=== PATIENT | female | born 1945 | race Caucasian/White ===

== ENCOUNTER 2017-06-17 10:37 | Observation (INO) | payer MEDICARE ==
[~2017-06-17] VITALS: Ht 157.5 cm; Wt 74.0 kg
[~2017-06-17 10:37] MED LIST: ADVA250A INH; ALPR.25 PO; ASPI81 PO; FLON0.053; METO25 PO; NITR0.4S SL; PLAV75TA PO; PROT40TA PO; ROSU40 PO
[2017-06-17 10:39] VITALS: BP 162/66; PULSE 88; RESP 15; TEMP 98.2; O2SAT 98
--- NOTE | 2017-06-17 10:53 | PD ---
HPI Chief Complaint: Chest Pain Time Seen by Provider: 10:52 Travel History International Travel<30 days: No Contact w/Intl Traveler<30days: No Traveled to known affect area: No History of Present Illness HPI 72 YO F with PMH of HTN, COPD, OK, PAD, CAD s/p coronary and femoral stenting, former smoker presents to the ED for evaluation of central chest tightness since 3 AM. Patient states that the pain woke her from sleep. She endorses diaphoresis and SOB. She denies palpitations, nausea, vomiting. She describes the pain as "like heartburn" and states that it is similar to previous MIs. She treated with nitroglycerin which did improve her symptoms, denies chest pain on presentation. She took low dose aspirin today. She spoke with her forklift technician who advised her to come to the ED. she also states that she took her first dose of metformin yesterday and had several episodes of diarrhea. PCP Dr. Lucas Jordan. [facility] Past Medical History Arthritis: Yes Blood Disorders: No Anxiety: No Depression: No Heart Rhythm Problems: No Cancer: No Cardiac Catheterization: Yes Cardiovascular Problems: Yes (4 CARDIAC STENTS 2009 2010, PVD) High Cholesterol: Yes Chest Pain: Yes Congestive Heart Failure: No COPD: Yes Coronary Artery Disease: Yes Diabetes: No Diminished Hearing: No Endocrine: No Gastrointestinal Disorders: No Genitourinary: No Hepatitis: No Hiatal Hernia: Yes Hypertension: Yes Immune Disorder: No Implanted Vascular Access Dvce: Yes Musculoskeletal: Yes (ARTHRITIS NECK) Neurologic: No Psychiatric: Yes (EXTREME CLAUSTRAPHOBIA) Reproductive: No Respiratory: Yes (COPD) Myocardial Infarction: Yes Pneumonia: Yes (WALKING ) Thyroid Disease: No Menopausal: Yes : 3 Para: 3 Miscarriage: 0 : 0 Past Surgical History Abdominal Surgery: No AICD: No Body Medical Devices: CARDIAC STENTS X 4; BILAT LEG STENTS X 4 RIGHT HIP Cardiac Surgery: Yes (CARDIAC STENTS X 4; LEGS 2 STENTS LEFT & RIGHT ) Coronary Stent: Yes (X 4 ) Ear Surgery: No Endocrine Surgery: No Eye Surgery: Yes (RIGHT CATARACT EXT.) Genitourinary Surgery: No Gynecologic Surgery: No Joint Replacement: Yes (RIGHT HIP) Oral Surgery: No Pacemaker: No Thoracic Surgery: No Other Surgery: No Social History Alcohol Use: Yes (OCCAS-MIX DRINKS) Tobacco Use: No (QUIT 4 YRS AGO:AGO, SMOKED 2 PPD) Substance Use: No Allergies-Medications (Allergen,Severity, Reaction): Coded Allergies: Niacin (Verified Allergy, Severe, 06/17/17) RASH Reported Meds & Prescriptions Reported Meds & Active Scripts Active Reported Ventolin Hfa 18 GM Inh (Albuterol Sulfate) 90 Mcg/Act Aer 1-2 Puff INH Q4-6H PRN Pantoprazole (Pantoprazole Sodium) 40 Mg Tab 40 Mg PO EVERY OTHER DAY Nitrostat SL (Nitroglycerin) 0.4 Mg Subl 0.4 Mg SL DIRECTED PRN 1 tablet under the tongue as needed for chest pain. Repeat every 5 minutes for a total of 3 DOSES or call 911 if NO relief. Metoprolol Tartrate 25 Mg Tab 25 Mg PO BID Clopidogrel (Clopidogrel Bisulfate) 75 Mg Tab 75 Mg PO DAILY Crestor (Rosuvastatin Calcium) 40 Mg Tab 40 Mg PO DAILY Aspirin 81 Mg Chew 81 Mg CHEW DAILY Amlodipine (Amlodipine Besylate) 5 Mg Tab 5 Mg PO DAILY Alprazolam 0.25 Mg Tab 0.25 Mg PO BID PRN Metformin ER (Metformin HCl) 500 Mg Mitzy 500 Mg PO DAILY With evening meal Review of Systems Except as stated in HPI: all other systems reviewed are Neg Physical Exam Narrative GENERAL: Well-nourished, well-developed pleasant white female in no acute distress. SKIN: Focused skin assessment warm/dry. HEAD: Normocephalic. EYES: No scleral icterus. No injection or drainage. NECK: Supple, trachea midline. No JVD or lymphadenopathy. CARDIOVASCULAR: Regular rate and rhythm without murmurs, gallops, or rubs. 2+ DP and radial pulses. RESPIRATORY: Breath sounds clear and equal bilaterally. No accessory muscle use. GASTROINTESTINAL: Abdomen soft, non-tender, nondistended. Active bowel sounds. MUSCULOSKELETAL: No cyanosis, or edema. BACK: Nontender without obvious deformity. No CVA tenderness. Data Data Last Documented VS Vital Signs Date Time Temp Pulse Resp B/P Pulse Ox O2 Delivery O2 Flow Rate FiO2 06/17/17 10:54 18 97 Room Air 06/17/17 10:39 98.2 88 162/66 Orders Electrocardiogram (06/17/17 ) Electrocardiogram (06/17/17 10:51) Basic Metabolic Panel (Bmp) (06/17/17 10:51) Ckmb (Isoenzyme) Profile (06/17/17 10:51) Complete Blood Count With Diff (06/17/17 10:51) Magnesium (Mg) (06/17/17 10:51) Prothrombin Time / Inr (Pt) (06/17/17 10:51) Act Partial Throm Time (Ptt) (06/17/17 10:51) Troponin I (06/17/17 10:51) Chest, Single Ap (06/17/17 10:51) Ecg Monitoring (06/17/17 10:51) Bilateral Bp Monitoring (06/17/17 10:51) Iv Access Insert/Monitor (06/17/17 10:51) Oximetry (06/17/17 10:51) Sodium Chloride 0.9% Flush (Ns Flush) (06/17/17 11:00) Labs Laboratory Tests Test 06/17/17 11:04 White Blood Count 8.3 TH/MM3 Red Blood Count 4.53 MIL/MM3 Hemoglobin 13.7 GM/DL Hematocrit 40.7 % Mean Corpuscular Volume 89.7 FL Mean Corpuscular Hemoglobin 30.1 PG Mean Corpuscular Hemoglobin 33.6 % Concent Red Cell Distribution Width 13.6 % Platelet Count 192 TH/MM3 Mean Platelet Volume 9.4 FL Neutrophils (%) (Auto) 60.5 % Lymphocytes (%) (Auto) 28.0 % Monocytes (%) (Auto) 8.6 % Eosinophils (%) (Auto) 1.8 % Basophils (%) (Auto) 1.1 % Neutrophils # (Auto) 5.0 TH/MM3 Lymphocytes # (Auto) 2.3 TH/MM3 Monocytes # (Auto) 0.7 TH/MM3 Eosinophils # (Auto) 0.1 TH/MM3 Basophils # (Auto) 0.1 TH/MM3 CBC Comment DIFF FINAL Differential Comment Prothrombin Time 10.2 SEC Prothromb Time International 0.9 RATIO Ratio Activated Partial 26.4 SEC Thromboplast Time Sodium Level 137 MEQ/L Potassium Level 3.5 MEQ/L Chloride Level 99 MEQ/L Carbon Dioxide Level 28.2 MEQ/L Anion Gap 10 MEQ/L Blood Urea Nitrogen 13 MG/DL Creatinine 0.75 MG/DL Estimat Glomerular Filtration 76 ML/MIN Rate Random Glucose 260 MG/DL Calcium Level 9.2 MG/DL Magnesium Level 1.7 MG/DL Total Creatine Kinase 37 U/L Troponin I LESS THAN 0.02 NG/ML MDM Medical Decision Making Medical Screen Exam Complete: Yes Emergency Medical Condition: Yes Differential Diagnosis chest pain versus angina versus OK versus ACS versus electrolyte abnormality versus other Narrative Course 72 YO F with PMH of HTN, COPD, OK, PAD, CAD s/p coronary and femoral stenting, former smoker presents to the ED for evaluation of central chest tightness since 3 AM, woke her from sleep. She endorses diaphoresis and SOB. She describes the pain as "like heartburn" and states that it is similar to previous MIs. She treated with nitroglycerin which did improve her symptoms, denies chest pain on presentation. She took low dose aspirin today. Vitals reviewed. Physical exam is unremarkable. Followed by Dr. Pacheco. EKG: rate 71, sinus rhythm with sinus arrhythmia. HI interval 146, QRS 102, QTC 421. Nonspecific ST and T-wave abnormalities noted. Reviewed by Dr. Pickard. CXR: No acute cardiopulmonary abnormality identified. Cardiac enzymes: Negative 1. CBC: unremarkable. CMP: Glucose 260 Given the patient's extensive cardiac history I recommended that she be admitted for observation to the [facility]. Initially the patient was resistant but eventually did agree to the admission. Please see chest pain center notes for disposition. Diagnosis Primary Impression: Chest pain Qualified Code: R07.9 - Chest pain, unspecified type Patient Instructions: General Instructions Penny Wei Jun 17, 2017 10:53
[2017-06-17 10:54] VITALS: RESP 18; O2SAT 97
[2017-06-17] MEDS ORDERED: METF500T4 PO (11:00)
[2017-06-17] MEDS ORDERED: METO25TA3 PO (11:00)
[2017-06-17] MEDS ORDERED: VENTAER INH (11:00)
[2017-06-17] MEDS ORDERED: ALPR0.25 PO (11:00)
[2017-06-17] MEDS ORDERED: NITR0.4S SL (11:00)
[2017-06-17] MEDS ORDERED: PANT40TA3 PO (11:00)
[2017-06-17] MEDS ORDERED: CLOP75TA PO (11:00)
[2017-06-17] MEDS ORDERED: SODIUM CHLORIDE 0.9% FLUSH 10 ML FLUSH IVF PRN (11:00)
[2017-06-17] MEDS ORDERED: ROSU40 PO (11:00)
[2017-06-17] MEDS ORDERED: ASPI81CH CHEW (11:00)
[2017-06-17] MEDS ORDERED: AMLO5TAB2 PO (11:00)
[2017-06-17 11:25] LABS: BASOPHIL # 0.1 TH/MM3 (0-0.2); BASOPHIL % 1.1 % (0.0-2.0); EOSINOPHIL # 0.1 TH/MM3 (0-0.4); EOSINOPHIL % 1.8 % (0.0-4.0); HEMATOCRIT 40.7 % (35.0-46.0); HEMO FLAGS DIFF FINAL; LYMPHOCYTE # 2.3 TH/MM3 (1.0-4.8); MEAN CELL VOLUME 89.7 FL (80.0-100.0); MEAN CORPUSCULAR HEMOGLOBIN 30.1 PG (27.0-34.0); MEAN CORPUSCULAR HGB CONC 33.6 % (32.0-36.0); MONO % 8.6 % (0.0-8.0); NEUT % 60.5 % (16.0-70.0); PLATELET COUNT 192 TH/MM3 (150-450); RED BLOOD COUNT 4.53 MIL/MM3 (4.00-5.30); RED CELL DISTRIBUTION WIDTH 13.6 % (11.6-17.2); WHITE BLOOD COUNT 8.3 TH/MM3 (4.0-11.0)
[2017-06-17 11:26] LABS: APTT (PATIENT) 26.4 SEC (24.3-30.1); INTERNATIONAL NORMALIZED RATIO 0.9 RATIO; PROTHROMBIN TIME - PATIENT 10.2 SEC (9.8-11.6)
--- NOTE | 2017-06-17 11:41 | RADRPT ---
EXAM DATE/TIME: 06/17/2017 11:05 [facility] COMPARISON: No previous studies available for comparison. INDICATIONS : Chest pain. MEDICAL HISTORY : Chronic obstructive pulmonary disease. SURGICAL HISTORY : Stents x4. ENCOUNTER: Initial ACUITY: 1 day PAIN SCORE: 2/10 LOCATION: Bilateral Chest, midline. FINDINGS: Portable AP view of the chest demonstrates a normal-sized cardiac silhouette. No effusion, consolidat ion, or pneumothorax is visualized. The bones and soft tissues demonstrate no acute abnormality. CONCLUSION: No acute cardiopulmonary abnormality is identified. Wolfgang Ralph MD on June 17, 2017 at 11:24 Board Certified Radiologist. This report was verified electronically.
[2017-06-17 11:43] LABS: ANION GAP 10 MEQ/L (5-15); BICARBONATE 28.2 MEQ/L (21.0-32.0); BLOOD UREA NITROGEN 13 MG/DL (7-18); CHLORIDE 99 MEQ/L (98-107); GLOMERULAR FILTRATION RATE 76 ML/MIN (>89); MAGNESIUM 1.7 MG/DL (1.5-2.5); POTASSIUM 3.5 MEQ/L (3.5-5.1); SODIUM (NA) 137 MEQ/L (136-145)
[2017-06-17 11:47] LABS: CREATINE KINASE 37 U/L (26-192)
--- NOTE | 2017-06-17 14:45 | EKG ---
Date Performed: 06/17/2017 Time Performed: 10:52:19 PTAGE: 72 years EKG: Sinus rhythm WITH SINUS ARRHYTHMIA NONSPECIFIC ST & T-WAVE ABNORMALITY BORDERLINE ECG PREVIOUS TRACING : 10/30/2013 08.02 Compared to prior tracing no significant change DOCTOR: Vj Joshi Interpretating Date/Time 06/17/2017 14:45:00
[2017-06-17] MEDS ORDERED: ONDANSETRON HCL 4 MG/2 ML VIAL IV PRN (15:15)
[2017-06-17] MEDS ORDERED: SODIUM CHLORIDE 0.9% FLUSH 5 ML FLUSH IVF PRN (15:15)
[2017-06-17] MEDS ORDERED: ACETAMINOPHEN/HYDROcodone 325 MG/7.5 MG TAB PO PRN (15:15)
[2017-06-17] MEDS ORDERED: ACETAMINOPHEN 500 MG CPLT PO PRN (15:15)
[2017-06-17 15:45] LABS: CREATINE KINASE 33 U/L (26-192)
[2017-06-17] MEDS ORDERED: RESP: ALBUTEROL 2.5 MG/IPRATROPIUM 0.5 MG NEB (PRN) INH (16:00)
[2017-06-17] MEDS ORDERED: ALPRAZolam 0.25 MG TAB PO PRN (16:00)
[2017-06-17] MEDS ORDERED: cloNIDine HCL 0.1 MG TAB PO PRN (16:00)
--- NOTE | 2017-06-17 16:14 | HHI.HP ---
HPI Primary Care Physician Mariana Hahn MD Chief Complaint Chest pain History of Present Illness This is a 72-year-old female with history of CAD and PVD that presents to the ED with a complaint of chest pain. She describes it as a pressure. Last about 2 hours. Was relieved with nitroglycerin at home. She was short of breath and diaphoretic. No nausea. States it feels similar to when eating stents in the past. Her cardiac stents were placed in 2010 and 2011. She had peripheral vascular stents as well with Dr. santos. Review of Systems General: Patient denies fevers, chills recent, and recent travel HEENT: Patient denies headache, sore throat, difficulty swallowing. Cardiovascular: Has the chest discomfort as mentioned above. Denies sensation of heart beating rapidly or irregularly. No syncope. She was diaphoretic. Respiratory: She was short of breath. Denies inspirational chest discomfort. Denies coughing wheezing or hemoptysis. GI: Patient denies nausea, vomiting, diarrhea, abdominal pain, bloody stools. Musculoskeletal: Patient denies joint pain or edema. Denies calf pain or edema. Neurovascular: Patient denies numbness, tingling, weakness in extremities. Denies headache. Endocrine: Denies polyuria and polydipsia. Hematologic: Denies easy bruising. Skin: Denies rash or itching. Past Family Social History Allergies: Coded Allergies: Niacin (Verified Allergy, Severe, 06/17/17) RASH Past Medical History CAD, PVD, diabetes, hypertension, COPD, hyperlipidemia, and anxiety. Past Surgical History Cardiac catheterizations. Peripheral vascular disease interventions. Cataracts. Right hip. Reported Medications Reported Meds & Active Scripts Active Reported Ventolin Hfa 18 GM Inh (Albuterol Sulfate) 90 Mcg/Act Aer 1-2 Puff INH Q4-6H PRN Pantoprazole (Pantoprazole Sodium) 40 Mg Tab 40 Mg PO EVERY OTHER DAY Nitrostat SL (Nitroglycerin) 0.4 Mg Subl 0.4 Mg SL DIRECTED PRN 1 tablet under the tongue as needed for chest pain. Repeat every 5 minutes for a total of 3 DOSES or call 911 if NO relief. Metoprolol Tartrate 25 Mg Tab 25 Mg PO BID Clopidogrel (Clopidogrel Bisulfate) 75 Mg Tab 75 Mg PO DAILY Crestor (Rosuvastatin Calcium) 40 Mg Tab 40 Mg PO DAILY Aspirin 81 Mg Chew 81 Mg CHEW DAILY Amlodipine (Amlodipine Besylate) 5 Mg Tab 5 Mg PO DAILY Alprazolam 0.25 Mg Tab 0.25 Mg PO BID PRN Metformin ER (Metformin HCl) 500 Mg Mitzy 500 Mg PO DAILY With evening meal Active Ordered Medications Current Medications Medications (Trade) Dose Ordered Sig/Caterina Route Start Time Stop Time Status Last Admin (NS Flush) 2 ml UNSCH PRN IVF 06/17/17 11:00 (NS Flush) 2 ml UNSCH PRN IVF 06/17/17 15:15 (NS Flush) 2 ml BID IVF 06/17/17 21:00 (Tylenol) 500 mg Q4H PRN PO 06/17/17 15:15 (Alderson 7.5-325 Mg) 1 tab Q4H PRN PO 06/17/17 15:15 (Zofran Inj) 4 mg Q6H PRN IV 06/17/17 15:15 (Aspirin) 325 mg DAILY PO 06/18/17 09:00 (Norvasc) 5 mg DAILY PO 06/18/17 09:00 UNV (Plavix) 75 mg DAILY PO 06/18/17 09:00 UNV (Lopressor) 25 mg BID PO 06/17/17 21:00 UNV Non-Formulary Medication 40 mg DAILY PO 06/18/17 09:00 UNV (Catapres) 0.1 mg Q4H PRN PO 06/17/17 16:00 UNV (Xanax) 0.25 mg BID PRN PO 06/17/17 16:00 UNV Family History There is family history of CAD. Social History Patient quit smoking about 4 years ago but prior that she smoked 2 pack of cigarettes daily. Has occasional alcohol. Denies illicit drugs. Physical Exam Vital Signs Vital Signs Date Time Temp Pulse Resp B/P Pulse Ox O2 Delivery O2 Flow Rate FiO2 06/17/17 10:54 18 97 Room Air 06/17/17 10:39 98.2 88 15 162/66 98 Physical Exam GENERAL: This is a well-nourished, well-developed patient, in no apparent distress. Patient speaks in clear complete sentences. Patient is pleasant. HEENT: Head is atraumatic and normocephalic. Neck is supple without lymphadenopathy and trachea is midline. No JVD or carotid bruits. CARDIOVASCULAR: Regular rate and rhythm without murmurs, gallops, or rubs. RESPIRATORY: Clear to auscultation. Breath sounds equal bilaterally. No wheezes , rales, or rhonchi. Chest wall is nontender. No use of accessory muscles. GASTROINTESTINAL: Abdomen is nontender, nondistended. Abdomen soft. No obvious pulsatile mass or bruit. No CVA tenderness. Strong femoral pulses bilaterally. Normal bowel sounds in all quadrants. MUSCULOSKELETAL: Patient is moving upper and lower extremities freely. No calf tenderness or edema, no Homans sign. Strong pulses in upper and lower extremities. NEUROLOGICAL: Patient is alert and oriented. Cranial nerves 2-12 are grossly intact. No focal deficits and speech is clear. SKIN: No rash and turgor is normal. Laboratory Laboratory Tests Test 06/17/17 06/17/17 11:04 14:28 White Blood Count 8.3 Red Blood Count 4.53 Hemoglobin 13.7 Hematocrit 40.7 Mean Corpuscular Volume 89.7 Mean Corpuscular Hemoglobin 30.1 Mean Corpuscular Hemoglobin 33.6 Concent Red Cell Distribution Width 13.6 Platelet Count 192 Mean Platelet Volume 9.4 Neutrophils (%) (Auto) 60.5 Lymphocytes (%) (Auto) 28.0 Monocytes (%) (Auto) 8.6 Eosinophils (%) (Auto) 1.8 Basophils (%) (Auto) 1.1 Neutrophils # (Auto) 5.0 Lymphocytes # (Auto) 2.3 Monocytes # (Auto) 0.7 Eosinophils # (Auto) 0.1 Basophils # (Auto) 0.1 CBC Comment DIFF FINAL Differential Comment Prothrombin Time 10.2 Prothromb Time International 0.9 Ratio Activated Partial 26.4 Thromboplast Time Sodium Level 137 Potassium Level 3.5 Chloride Level 99 Carbon Dioxide Level 28.2 Anion Gap 10 Blood Urea Nitrogen 13 Creatinine 0.75 Estimat Glomerular Filtration 76 Rate Random Glucose 260 Calcium Level 9.2 Magnesium Level 1.7 Total Creatine Kinase 37 33 Troponin I LESS THAN 0.02 LESS THAN 0.02 Result Diagram: 06/17/17 1104 06/17/17 1104 Imaging Last 48 hours Impressions Chest X-Ray 06/17/17 1051 Signed Impressions: Service Date/Time: Saturday, June 17, 2017 11:05 - CONCLUSION: No acute cardiopulmonary abnormality is identified. Wolfgang Ralph MD Course Initial EKG is sinus rhythm without significant ST segment depressions or elevations. Assessment and Plan Assessment and Plan * Chest pain: Patient will continue to have serial cardiac enzymes and EKGs for ruling out purposes. She has been seen by Dr. Moises Jurado of cardiology in the chest pain center. She will have a Lexiscan in the morning if she rules out. She'll be discharged home if stress test is nonischemic. She should follow-up with her primary care physician as well as her railway yard assistant. * CAD: Patient likely to have stress test. * Hypertension: Continue current medication. * Hyperlipidemia: Continue current medication. * Diabetes: Continue current medication. * GERD: Continue current medication. * COPD: When necessary DuoNeb's. Resume medication at home. * Anxiety: Continue current medication. * Peripheral vascular disease: Continue current medication. Patient is stable at this time. She is agreeable to this plan. Zachary Albright Jun 17, 2017 16:14
[2017-06-17 16:26] VITALS: BP 144/74; PULSE 70; RESP 20; TEMP 97; O2SAT 95
[2017-06-17] MEDS ORDERED: DEXTROSE 50% IN WATER 50 ML VIAL(D50) IV PRN (17:00)
[2017-06-17] MEDS ORDERED: GLUCAGON 1 MG/ML VIAL IM/SQ PRN (17:00)
[2017-06-17 19:03] LABS: CREATINE KINASE 45 U/L (26-192)
[2017-06-17 19:54] VITALS: BP 133/70; PULSE 84; RESP 17; TEMP 96.6; O2SAT 96
[2017-06-17] MEDS: SODIUM CHLORIDE 0.9% FLUSH 5 ML FLUSH IVF SCH (20:10)
[2017-06-17] MEDS: INSULIN ASPART SUPPLEMENTAL SCALE SQ SCH (20:15)
[2017-06-17] MEDS: METOPROLOL TARTRATE 25 MG TAB PO SCH (20:16)
[2017-06-17 20:43] VITALS: PULSE 80
[2017-06-17 23:48] VITALS: BP 120/57; PULSE 80; RESP 16; TEMP 97.5; O2SAT 96
[2017-06-18 00:05] VITALS: PULSE 76
[2017-06-18 04:16] VITALS: BP 123/60; PULSE 67; RESP 17; TEMP 98.1; O2SAT 94
[2017-06-18] MEDS: INSULIN ASPART SUPPLEMENTAL SCALE SQ SCH ×2 (06:05→11:00)
[2017-06-18] MEDS: METOPROLOL TARTRATE 25 MG TAB PO SCH (07:58)
[2017-06-18 08:08] VITALS: BP 132/64; PULSE 72; RESP 20; TEMP 97.9; O2SAT 96
[2017-06-18] MEDS: SODIUM CHLORIDE 0.9% FLUSH 5 ML FLUSH IVF SCH (08:20)
[2017-06-18] MEDS ORDERED: CLOPIDOGREL 75 MG TAB PO SCH (09:00)
[2017-06-18] MEDS ORDERED: ASPIRIN 325 MG TAB PO SCH (09:00)
[2017-06-18] MEDS ORDERED: amLODIPine BESYLATE 5 MG TAB PO SCH (09:00)
[2017-06-18] MEDS ORDERED: ATORVASTATIN 80 MG TAB PO SCH (09:00)
[2017-06-18] MEDS ORDERED: REGADENOSON INJ 0.4 MG/5 ML SYR ONE (13:05)
--- NOTE | 2017-06-18 14:08 | RADRPT ---
EXAM DATE/TIME: 06/18/2017 12:37 [facility] COMPARISON: No previous studies available for comparison. INDICATIONS : Substernal chest pain with dyspnea and diaphoresis. Angina. Coronary artery disease. DOSE: 25.4 mCi Tc99m Myoview at stress. 8.5 mCi Tc99m Myoview at rest. 0.4 mg Lexiscan STRESS SYMPTOMS: Dyspnea. EJECTION FRACTION: 64% MEDICAL HISTORY : Hypertension. Diabetes mellitus type 2. Peripheral vascular disease. SURGICAL HISTORY : Coronary artery stent. Right hip. ENCOUNTER: Initial ACUITY: 2 days PAIN SCALE: 5/10 LOCATION: Substernal chest TECHNIQUE: The patient underwent pharmacologic stress with infusion of prescribed dose. Continuous ECG tracing was monitored during stress. Gated SPECT imaging was performed after stress and conventional SPECT i maging was performed at rest. The examination was performed on a SPECT/CT scanner, both attenuation and non-corrected datasets were reviewed. FINDINGS: DISTRIBUTION: The maximum perfused segment at stress is in the anterolateral wall. PERFUSION STUDY: The pattern of perfusion at stress is within normal limits. GATED STUDY: There is intact wall motion and thickening without hypokinetic or dyskinetic segments. CONCLUSION: Normal examination. RISK CATEGORY: Low (<1% Annual Mortality Rate) Fredy Braswell MD on June 18, 2017 at 14:05 Board Certified Radiologist. This report was verified electronically.
--- NOTE | 2017-06-18 14:41 | HHI.DCPOC ---
Discharge Care Plan Diagnosis: (1) Chest pain (2) CAD (coronary artery disease) (3) H/O heart artery stent (4) DM (diabetes mellitus) (5) Hypertension (6) Hyperlipidemia (7) Peripheral vascular disease Goals to Promote Your Health * To prevent worsening of your condition and complications * To maintain your health at the optimal level Directions to Meet Your Goals Take your medications as prescribed Follow your dietary instruction Follow activity as directed Keep your appointments as scheduled Take your immunizations and boosters as scheduled If your symptoms worsen call your PCP, if no PCP go to Urgent Care Center or Emergency Room Smoking is Dangerous to Your Health. Avoid second hand smoke Call the 24-hour hour crisis hotline for domestic abuse at Zachary Albright Jun 18, 2017 14:41
--- NOTE | 2017-06-18 15:27 | EKG ---
Date Performed: 06/17/2017 Time Performed: 18:14:36 PTAGE: 72 years EKG: Sinus rhythm WITH SINUS ARRHYTHMIA NONSPECIFIC T-WAVE ABNORMALITY BORDERLINE ECG PREVIOUS TRACING : 06/17/2017 14.21 Since previous tracing, no significant change noted DOCTOR: Samuel Kat Interpretating Date/Time 06/18/2017 15:25:56
--- NOTE | 2017-06-18 15:29 | EKG ---
Date Performed: 06/17/2017 Time Performed: 14:21:46 PTAGE: 72 years EKG: Sinus rhythm WITH SINUS ARRHYTHMIA NONSPECIFIC ST & T-WAVE ABNORMALITY BORDERLINE ECG PREVIOUS TRACING : 06/17/2017 10.52 Since previous tracing, no significant change noted DOCTOR: Samuel Kat Interpretating Date/Time 06/18/2017 15:28:47
--- NOTE | 2017-06-18 15:41 | TR ---
Date Performed: 06/18/2017 Time Performed: 13:12:49 DOCTOR: Samuel Kat DRUG LIST: CLINICAL HISTORY: REASON FOR TEST: REASON FOR ENDING: OBSERVATION: CONCLUSION: Lexiscan stress test was performed under standard four minute protocol. Radionuclid e was injected one minute prior to ending the test. No electrocardiographic abormalities were present to suggest ischemia. Nuclear imaging and interpretation are pending. COMMENTS:
[2017-06-19] MEDS ORDERED: PANTOPRAZOLE SOD 40 MG DELAYED RELEASE TAB PO SCH (09:00)
== END 2017-06-18 15:12 | disposition home or self-care (01) ==
LOC: NEPE 10:37 → NEDA 13:22 → NEPHCDU 14:56
PROVIDERS: ADMIT Internal Medicine Cardiovascular Disease; ATTEND Internal Medicine Cardiovascular Disease
DX: R07.89 Other chest pain (principal); Z95.5 Presence of coronary angioplasty implant and graft; I25.10 Atherosclerotic heart disease of native coronary artery without angina pectoris; E11.9 Type 2 diabetes mellitus without complications; J44.9 Chronic obstructive pulmonary disease, unspecified; E78.5 Hyperlipidemia, unspecified; I73.9 Peripheral vascular disease, unspecified; I10 Essential (primary) hypertension; R06.02 Shortness of breath; R61 Generalized hyperhidrosis; M19.90 Unspecified osteoarthritis, unspecified site; Z87.891 Personal history of nicotine dependence; I25.2 Old myocardial infarction; Z79.899 Other long term (current) drug therapy; Z79.84 Long term (current) use of oral hypoglycemic drugs; Z79.82 Long term (current) use of aspirin
CPT/HCPCS: 71010; 78452; 80048; 82550; 82948; 83735; 84484; 85025; 85610; 85730; 93005; 93017; 99285; A9502; G0378; J1815; J2785

== ENCOUNTER 2018-05-26 14:57 | Observation (INO) | END 2018-05-27 10:45 | disposition home or self-care (01) | LOC: PH3 14:57 | PROVIDERS: ADMIT Family Medicine; ATTEND Family Medicine ==